=== PATIENT | male | born 1960 | race African-American/Black ===

== ENCOUNTER 2019-12-29 18:32 | Emergency (ER) | payer MEDICAID, OTHER ==
[~2019-12-29] VITALS: Ht 188 cm; Wt 86.2 kg
[2019-12-29 18:42] VITALS: BP 99/62
--- NOTE | 2019-12-29 18:42 | NUR ---
ED Nurse Note: Patient walked in to ED from home c/o left elbow pain and swelling, possible dislocation. Per pt, she slipped and fell 2 days ago and landed on his left elbow. Pt has dialysis access on [address]. Pt is blind bilateral eyes. AAOX4, verbally responsive. No SOB, on room air.
--- NOTE | 2019-12-29 18:52 | Emergency Room Report ---
History of Present Illness General Chief Complaint: Upper Extremity Injury Source: Patient Present Illness HPI 59 YO male who is legally blind and on dialysis presents to the ED c/O pain, swelling and tenderness to the left elbow x 2 days. Pt. s/p mechanical trip and fall. Pt. took Tylenol 500mg This am with minimal relief. He has been keeping his arm in a sling. He has his dialysis shunt in the left upper extremity. He denies neck or back pain. He denies hitting his head or LOC. Denies numbness tingling or loss of sensation or gross motor movements of the extremities, incontinence of bowel or bladder. Denies CP, Palpitations, AMS, dizziness, Changes in Vision, weakness or a sudden severe headache. Allergies: Coded Allergies: No Known Allergies (Unverified , 12/29/19) COVID-19 Screening Contact w/high risk pt: No Experienced COVID-19 symptoms?: No COVID-19 Testing performed PEDIATRIC OPHTHALMOLOGIST: No Patient History Past Medical History: see triage record Past Surgical History: none Pertinent Family History: none Reviewed Nursing Documentation: PMH: Agreed; PSxH: Agreed Nursing Documentation-PMH Past Medical History: No History, Except For Hx Diabetes: Yes Review of Systems All Other Systems: negative except mentioned in HPI Physical Exam Vital Signs Date Time Temp Pulse Resp B/P (MAP) Pulse Ox O2 Delivery O2 Flow Rate FiO2 12/29/19 18:41 99.0 64 15 99/62 (74) 96 Room Air Sp02 EP Interpretation: reviewed, normal General Appearance: no apparent distress, alert, GCS 15, non-toxic Head: normocephalic, atraumatic Eyes: bilateral eye normal inspection, bilateral eye PERRL ENT: hearing grossly normal, normal voice Neck: full range of motion, no bony tend Respiratory: lungs clear, normal breath sounds, speaking full sentences Cardiovascular #1: regular rate, rhythm, normal capillary refill Cardiovascular #2: 2+ radial (R), 2+ radial (L) Gastrointestinal: non tender, soft Musculoskeletal: back normal, normal range of motion, gait/station normal, tender - posterior and lateral aspect of the left elbow. Pain with attempt to ROM elbow joint. Swelling noted. Neurologic: alert, motor strength/tone normal, oriented x3, sensory intact, responsive, speech normal Psychiatric: judgement/insight normal Medical Decision Making PA Attestation Dr. Lazaro is my supervising Physician whom patient management has been discussed with. Diagnostic Impression: Primary Impression: Olecranon fracture Qualified Codes: S52.022A - Displaced fracture of olecranon process without intraarticular extension of left ulna, initial encounter for closed fracture Additional Impression: History of renal dialysis ER Course 59 YO male who is legally blind and on dialysis presents to the ED c/O pain, swelling and tenderness to the left elbow x 2 days. Pt. s/p mechanical trip and fall. Pt. took Tylenol 500mg This am with minimal relief. He has been keeping his arm in a sling. He has his dialysis shunt in the left upper extremity. He denies neck or back pain. He denies hitting his head or LOC. Denies numbness tingling or loss of sensation or gross motor movements of the extremities, incontinence of bowel or bladder. Denies CP, Palpitations, AMS, dizziness, Changes in Vision, weakness or a sudden severe headache. Ddx considered but are not limited to Fracture, dislocation, contusion, Sprain/ Strain/Spasm, Bursitis. Vital signs: are WNL, pt. is afebrile H&PE are most consistent with musculoskeletal injury will perform imaging to r/ o fractures/dislocations. ORDERS: - X-ray Left Elbow - negative for fx, Dislocation, or significant soft tissue injury, per preliminary read in ED, and signed by AMANDA Persaud, my supervising physician has reviewed, and agrees with my interpretation. ED INTERVENTIONS: - Pewamo PO -Left Long arm posterior splint applied by tooling engineering tech. Pt. remains neurovascularly intact. -- Left arm Sling applied by tooling engineering tech. Pt. remains neurovascularly intact. Pt. & Family member do not have renal DrJorge Gibbons's number. They will contact him tomorrow am. Pt. does not have a PCP - per pt. and his . Dr. Carrasco was contacted. recommended to splint pt. even though shunt in affected arm. Due to [employer] pt. needs to have orthopedic surgery AL[facility] with surgeon in network. DISCHARGE: At this time pt. is stable for d/c to home. Will provide printed patient care instructions, and any necessary prescriptions. Care plan and follow up instructions have been discussed with the patient prior to discharge. Other X-Ray Diagnostic Results Other X-Ray Diagnostic Results : X-Ray ordered: Left Elbow # of Views/Limited Vs Complete: 3 View Indication: Pain EP Interpretation: Yes PA Xray: Interpretation reviewed, by supervising MD, and agrees with findings. Interpretation: no dislocation, no soft tissue swelling, other - displaced olecranon fracture Impression: No acute disease Electronically Signed by: Radha Persaud PA-C Last Vital Signs Date Time Temp Pulse Resp B/P (MAP) Pulse Ox O2 Delivery O2 Flow Rate FiO2 12/29/19 18:41 99.0 64 15 99/62 (74) 96 Room Air Status: improved Disposition: HOME, SELF-CARE Condition: Stable Patient Instructions: Elbow Fracture, Simple Additional Instructions: Take medications as directed. Do not drink alcohol, drive, or operate heavy machinery while taking Pewamo as this may cause drowsiness. Follow up with an MARKING MACHINE OPERATOR [place] within 24-48 hours, This Fracture will require surgery. Contact your Dialysis Doctor to have alternate vascular access for dialysis placed as the one in the affected arm will be temporarily un-accessible Return sooner to ED if new symptoms occur, or current symptoms become worse. - Please note that this Emergency Department Report was dictated using Sellfybillboard mechanic technology software, occasionally this can lead to erroneous entry secondary to interpretation by the dictation equipment. Radha Persaud Dec 29, 2019 18:52
--- NOTE | 2019-12-29 18:54 | NUR ---
ED Nurse Note: Xray at bedside.
--- NOTE | 2019-12-29 19:02 | NUR ---
HAND-OFF: Report given to Franklyn RN.
--- NOTE | 2019-12-29 19:02 | NUR ---
ED Nurse Note: Report received from PANCHITO ALEX. Patient awake on bed on sitting position. No c/o pain as of the moment. Awaiting xray results
--- NOTE | 2019-12-29 19:07 | Diagnostic Imaging Report ---
EXAM: XR Left Elbow Complete, 3 or More Views CLINICAL HISTORY: PAIN TECHNIQUE: Frontal, lateral and oblique views of the left elbow. COMPARISON: None available. FINDINGS: Bones/joints: There is a fracture through the base of the olecranon process with approximately 2.9 cm of displacement. There is a mature small triceps tendon enthesophyte. No dislocation. Soft tissues: Posterior soft tissue swelling is demonstrated. Dense tubular structure overlying the pre-humeral soft tissues likely representing vascular graft. IMPRESSION: Displaced olecranon fracture.
[2019-12-29] MEDS ORDERED: HYDROcodone/Acetamin 5/325 tab ORAL ONE (19:45)
[2019-12-29] MEDS ORDERED: NORCO 5-325 TA1 EAC1 ORAL (19:58)
--- NOTE | 2019-12-29 20:12 | NUR ---
ED Nurse Note: Long arm posterior splint + long arm sling applied by safety technician.
--- NOTE | 2019-12-29 20:14 | NUR ---
ED Nurse Note: Discharge plan and instruction explained to CARLOS (pts director of labor relations).
--- NOTE | 2019-12-29 20:35 | NUR ---
ER DISCHARGE NOTE: Patient is cleared to be discharged per ERMD, pt is aox4, on room air, with stable vital signs. plastic surgery manager CARLOS was given dc and prescription instructions, pt was able to verbalize understanding, pt id band removed. pt is able to ambulate with plastic surgery manager CARLOS and was accompanied to the lobby. pt took all belongings.
[2019-12-29 20:36] VITALS: BP 132/76
== END 2019-12-29 20:37 | disposition home or self-care (01) ==
LOC: EMR 19:37
DX: S52.022A Displaced fracture of olecranon process without intraarticular extension of left ulna, initial encounter for closed fracture (principal); E11.9 Type 2 diabetes mellitus without complications; W01.0XXA Fall on same level from slipping, tripping and stumbling without subsequent striking against object, initial encounter; Y92.9 Unspecified place or not applicable; H54.8 Legal blindness, as defined in USA
CPT/HCPCS: 29105; 73080; Z7502; 99283

== ENCOUNTER 2020-06-03 07:30 | Emergency (ER) | payer MEDICAID ==
[~2020-06-03] VITALS: Ht 185.4 cm; Wt 88.5 kg
[~2020-06-03 07:30] MED LIST: NORCO 5-325 TA1 EAC1 ORAL
--- NOTE | 2020-06-03 07:53 | NUR ---
ED Nurse Note:pt into rme, pt unable to do visual acuity as he is blind. accompanied by family member.
[2020-06-03] MEDS ORDERED: BACTRIM DS TAB1 EAC1 ORAL (08:40)
[2020-06-03] MEDS ORDERED: AUGMENTIN 875-1 EAC1 ORAL (08:40)
[2020-06-03] MEDS ORDERED: ACETAMINOPHEN-1 EAC2 ORAL (08:40)
[2020-06-03] MEDS ORDERED: CILOXAN 0.3% O1 DROP LEFT EYE (08:40)
--- NOTE | 2020-06-03 08:40 | Emergency Room Report ---
History of Present Illness General Chief Complaint: Eye Problems Source: Patient Present Illness HPI 59-year-old -O[place]i male with past medical history of ESRD Monday, hypertension, chronic blindness x10 years, cataracts, diabetes brought in by caregiver/best friend/roommate with complaint of left eye pain after falling into a chair 4 days ago. Denies loss of consciousness, fever, chills, vomiting, neck pain, or persistent headache. Patient states that it only hurts in and around his eyes. He has been icing his eye at home with significant relief of swelling. Tetanus status is unknown. Patient denies blood thinners The patient's symptoms were gradual onset, severity was moderate, duration since 4 days. Quality: Aching Past medical history: ESRD, hypertension, blindness, cataracts, diabetes Past surgical history: AV hemodialysis graft Smoking: Denies Alcohol use: Denies Drug use: Denies Review of systems: CONST: No fevers or chills, No night sweats PULMONARY: No productive cough, No shortness of breath CARDIAC: No chest pain, No palpitations GI: No vomiting, No diarrhea , No melena_or_BRBPR : No dysuria, No hematuria, No discharge NEURO: No new_focal_weakness_or_numbness, No confusion, No vision changes 14 point Review of Systems is otherwise negative except per HPI Physical Exam: GENERAL: Awake_alert_ nontoxic, no acute distress Spo2 98% on RA -normal EYES: Visual acuity: Patient is blind chronically Cataracts bilaterally External: no evidence of periorbital rash, swelling, proptosis, abrasions, or foreign body (OU) Lids / Lashes: has mild superior eye lid swelling without any lig lag (OU) Conjunctiva: ++ injection/ chemosis (OS), normal OD Sclera: ++injection (OS) Cornea: ++cataracts bilaterally. No hypopion or hyphema Anterior Chamber: no cell or flare (OU) Fluoroscein uptake: none, negative Mayela's (OU) Foreign body: none visualized, upper eyelid flipped (OU) Tonopen: [ ] OS, [ ]OD --> NOT DONE 2/2 trauma and concern for corneal laceration Visual acuity: [see nursing note] PATIENT IS BLIND Pupils: OS fixed, dilated. OD reactive Extraocular movements intact without evidence of entrapment Visual wesley full to confrontation ENT: External nose and ear normal_in_appearance. Oropharynx clear. Head_atraumatic, Moist_oral_mucosa NECK: No JVD. No meningismus. No thyromegaly. Supple. Trachea midline RESP: Normal respiratory effort. Symmetric rise. No stridor. Clear_to_auscultation_No_rales_No_wheezes CARDIAC: Regular rate and regular rhytm. No_significant pedal edema. ABDOMEN: Soft. Nondistended. Nontender_No_rebound_or_guarding. MSK: Normal muscle tone, without rigidity. Extremities without asymmetric deformity or swelling. SKIN: Warm and dry. No visible cyanosis or pallor NEUROLOGIC: Alert, oriented x3. Motor_and_sensation_grossly_intact. No truncal ataxia. Gait_normal Psych: Normal mood and affect, normal judgment and insight - COORDINATION OF CARE Case was discussed with: Patient , Patient's Family , Patient's Physician Medical Decision Making/Plan: Ddx: Conjunctivitis secondary to viral versus bacterial versus allergic vs vitreous hemorrhage vs endopthalmitis. Patient is afebrile and well appearing. He is chronically blind at baseline. No headache, nuchal rigidity of petechiae to suggest meningitis. Wood's lamp exam of affected eye (OS) shows chemosis. Concern for corneal injury vs infection. Negative Mayela's. No hypopyon or hyphema noted. Lids everted and showed mild swelling to L upper eye lid. No proptosis, doubt retrobulbar hematoma. No cycloplegia, doubt orbital cellulitis or periorbital cellulitis. Optho Dr Hollis was consulted regarding eye findings and states the eye appears to have a corneal infection or perforation. Recommends stat referral to [facility] or [facility] for optho evaluation. Patient received zosyn and tdap in ED. I spoke with patient's bestfriend/caregiver at length of how important it is for patient to go directly to [facility] or [facility] for stat optho evaluation as infection may worsen and seed infection posteriorly to the brain. Both the patient and caregiver verbalize their understanding of this. They state they will go to [facility] after dialysis today at 10am. All questions answered. Info for [facility] and [facility] given. Pertinent results reviewed with the patient. I educated the patient on the current treatment plan including the risks, benefits, and alternatives. I also discussed the extent and limitations of the current evaluation. The patient expressed understanding and agreement with plan. I recommended PMD follow-up within 1-2 days. Also advised that the patient return to the Emergency Department as soon as possible if they experience any new, persistent, or worsening symptoms. Allergies: Coded Allergies: No Known Allergies (Unverified , 12/29/19) COVID-19 Screening Contact w/high risk pt: No Experienced COVID-19 symptoms?: No COVID-19 Testing performed OWNER ORAL SURGEON: Yes COVID-19 Screening: Negative COVID-19 COVID-19 Testing Source: AIR BRAKE WORKER Nursing Documentation-PMH Hx Diabetes: Yes Physical Exam Vital Signs Date Time Temp Pulse Resp B/P (MAP) Pulse Ox O2 Delivery O2 Flow Rate FiO2 06/03/20 07:39 98.8 75 20 152/87 (108) 94 Room Air Sp02 EP Interpretation: reviewed, normal Medical Decision Making Diagnostic Impression: Primary Impression: Corneal perforation of left eye Additional Impressions: Blindness ESRD (end stage renal disease) Conjunctivitis Cataract Last Vital Signs Date Time Temp Pulse Resp B/P (MAP) Pulse Ox O2 Delivery O2 Flow Rate FiO2 06/03/20 07:39 98.8 75 20 152/87 (108) 94 Room Air Disposition: HOME, SELF-CARE Admit Decision Time: 08:37 Condition: Stable Scripts Ondansetron Odt* (ZOFRAN ODT*) 4 Mg Tab.rapdis 4 MG BC EVERY 6 HOURS PRN for Nausea & Vomiting, #10 TAB 0 Refills Prov: ChingEloy alexandere D.O. 06/03/20 Acetaminophen With Codeine (T#4) (TYLENOL #4 TAB*) Y Tab 1 TAB ORAL Q8H PRN for For Pain, #21 TAB 0 Refills Prov: ChingEloye D.O. 06/03/20 Trimethoprim/Sulfamethoxazole 160/800* (BACTRIM DS TABLET*) 1 Each Tablet 1 TAB ORAL Q12H, #14 TAB 0 Refills Prov: ChingNilesNayeli D.O. 06/03/20 Amoxicillin/Potassium Clav 875-125* (AUGMENTIN 875-125 TABLET*) 1 Each Tablet 1 TAB ORAL TWICE A DAY for 7 Days, #14 TAB Prov: ChingNilesNayeli D.O. 06/03/20 Ciprofloxacin (Ciprofloxacin HCl) 2.5 Ml Drops 2 DROP LEFT EYE Q4H for 7 Days, #6.5 ML Prov: Nayeli Ching D.O. 06/03/20 Patient Instructions: Bacterial Conjunctivitis, Ruptured Globe Additional Instructions: Instructions for patient/nursing secretary: Follow up with your physician within 24 hours as instructed for ophthalmology follow-up. As we discussed, you have a likely ruptured globe and you need to follow-up with ophthalmology at [facility] or [facility] to prevent further complications. Follow-up with your doctor sooner if your condition requires a more timely clinical reevaluation. Return to the emergency department immediately if you feel that your condition is worsening or if you have any new or concerning symptoms. Review your discharge instructions and take any prescriptions given as instructed. [facility] PROVIDES FREE OR LOW-COST HEALTH SERVICES TO PEOPLE WHO CAN SHOW PROOF THAT THEY LIVE IN [facility]. TO FIND MORE CLINICS PARTNERED WITH [facility] TO PROVIDE SERVICE, PLEASE CALL . Nayeli Ching D.O. Jun 03, 2020 08:40
[2020-06-03] MEDS ORDERED: ONDANSETRON ODT4 MG BC (08:43)
[2020-06-03] MEDS ORDERED: Tetanus/Diptheria/Pertussis IM ONE (08:45)
[2020-06-03] MEDS ORDERED: oxyCODONE HCL/Acetaminophen 5/325mg ORAL ONE (08:45)
[2020-06-03] MEDS ORDERED: Piperacillin/Tazobactam 3.375 GM in NS 110 ML IVPB ONE (08:45)
--- NOTE | 2020-06-03 09:11 | NUR ---
ED Nurse Note: pt tolerates meds given as noted pt tolerates iv start well.
[2020-06-03 09:13] VITALS: BP 147/82
[2020-06-03 09:25] VITALS: BP 147/82
--- NOTE | 2020-06-03 09:37 | NUR ---
ED Nurse Note: Pt cleared by health care Provider for discharge. DC instructions/prescription was given and explained to pt and verbalized understanding of teachings. All medical devices such as ID band removed. Pt is AAO x4, ambulatory and left with all personal belongings.
== END 2020-06-03 09:26 | disposition home or self-care (01) ==
LOC: EMR 09:05
DX: S05.8X2A Other injuries of left eye and orbit, initial encounter (principal); H54.8 Legal blindness, as defined in USA; E11.22 Type 2 diabetes mellitus with diabetic chronic kidney disease; I12.0 Hypertensive chronic kidney disease with stage 5 chronic kidney disease or end stage renal disease; N18.6 End stage renal disease; H26.9 Unspecified cataract; W01.190A Fall on same level from slipping, tripping and stumbling with subsequent striking against furniture, initial encounter; Y93.01 Activity, walking, marching and hiking; Y92.9 Unspecified place or not applicable; Z99.2 Dependence on renal dialysis
CPT/HCPCS: 90471; 90715; 96365; J2543; Z7502; 99284